=== PATIENT | female | born 1990 | race Caucasian/White ===

== ENCOUNTER → 2020-03-13 07:37 | Outpatient (CLI) | payer OTHER, SELFPAY ==
--- NOTE | ~2020-03-13 | US_ITS ---
EXAMINATION: US breast LT limited HISTORY: Left nipple discharge TECHNIQUE: Limited left breast ultrasound is performed. FINDINGS: There is no evidence of focal abnormal cystic or solid mass in the vicinity of the left nip ple. IMPRESSION: No specific sonographic correlate is identified for the patient's left nipple discharge. Further eval uation at this time should be based on clinical assessment. Continued follow-up physical examination is recommended. BI-RADS Category 1: Negative Reviewed, dictated and finalized at location A. IMPRESSION: No specific sonographic correlate is identified for the patient's left nipple d ischarge. Further evaluation at this time should be based on clinical assessmen t. Continued follow-up physical examination is recommended. BI-RADS Category 1: Negative
== END ==
PROVIDERS: Visit Provider Nurse Practitioner Obstetrics & Gynecology
DX: N64.4 Mastodynia (principal)
CPT/HCPCS: 76642

== ENCOUNTER 2024-03-29 16:05 | Emergency (ER) | payer OTHER, SELFPAY ==
[2024-03-29 16:08] VITALS: BP 137/90; PULSE 98; RESP 18; TEMP 36.9; O2SAT 100
--- NOTE | 2024-03-29 17:07 | ED.HA ---
HPI - Headache General Chief Complaint: Headache Stated Complaint: headache Time Seen by Provider: 03/29/24 16:41 Source: patient Mode of arrival: ambulatory Limitations: no limitations History of Present Illness HPI Narrative: Patient presents with a headache of 14 days duration. Associated with mild photophobia and some phonophobia. Worse with motion. Associated with nausea but no vomiting. She had a fever on day one or 2 of symptoms but not since. Headache is right-sided and associated with facial numbness and feeling like her scalp is on fire. Also paresthesias in her bilateral arms. She states this is normal for her headache semiology (except the scalp on fire sensation is new) but it feels like this headache is lasting longer than normal. Her PCP manages her headaches. Currently on [employer] but not working this time. Has not seen a neurologist but has had an MRI which noted some finding at her mastoid (unknown exactly by patient other than T2... ) but otherwise felt to be benign. No increased lacrimation, not on anticoagulation, no trauma, no sick contacts. Related Data Allergies Allergy/AdvReac Type Severity Reaction Status Date / Time venom-honey bee Allergy Severe Anaphylactic Unverified 03/29/24 16:26 Shock Sulfa (Sulfonamide Allergy Mild RASH Unverified 03/29/24 16:26 Antibiotics) ADHESIVE TAPE Allergy Mild HIVES Uncoded 03/29/24 16:26 PMFSH Past Medical History Medical History Migraine Social History Social History Living arrangements: with family Additional living arrangements comments: and children Exam Narrative: GENERAL: Well-appearing, well-nourished, and in no acute distress. HEAD: Normocephalic, atraumatic. EYES: Non injected, non icteric. PERRL. No APD. Very slight ptosis of right eyelid. EOMI. No palsy. No notable lacrimation of bilateral eyes. ENT: Nares clear, no rhinorrhea or epistaxis. NECK: Supple. CHEST: Speaking in full sentences. No respiratory distress. HEART: Regular rate and rhythm. . ABDOMEN: Soft, nondistended. EXTREMITIES: Normal range of motion. No edema. SKIN: Warm, dry, no rash. Particularly no lesions appreciated along arms or face. No TTP of bilateral temples. NEURO: No focal deficits. Alert and oriented x3. Sensation intact throughout extremities and across distribution of face x3, symmetric. Normal and symmetric facial muscles (smile, closed eyes, furrowed brow). Speaks clearly without aphasia or dysarthria. No abnormal movements appreciated. PSYCH: Normal mood and affect. Course Vital Signs Vital signs: Vital Signs Temperature 98.4 F 03/29/24 16:08 Pulse Rate 98 03/29/24 16:08 Respiratory Rate 18 03/29/24 16:08 Blood Pressure 137/90 03/29/24 16:08 Pulse Oximetry 100 03/29/24 16:08 Oxygen Delivery Room Air 03/29/24 16:08 Temperature 98.4 F 03/29/24 16:08 Pulse Rate 98 03/29/24 16:08 Respiratory Rate 18 03/29/24 16:08 Blood Pressure 137/90 03/29/24 16:08 Pulse Oximetry 100 03/29/24 16:08 Oxygen Delivery Room Air 03/29/24 16:08 MDM - Headache MDM Narrative Medical decision making narrative: After obtaining the patient's history and performing a physical exam, the headache is most likely due to benign etiology. The extensive neurological examination is non-focal, there are no high-risk features on history, vital signs are within normal limits, and the patient is non-toxic appearing. DIFFERENTIAL DIAGNOSIS The Ddx for the patient's headache is tension headache, migraine, or other headache of non-emergent etiology. Unlikely SAH: Headache is similar to headaches in the past. Unlikely subdural/epidural hematoma: no history of trauma, no anticoagulation Unlikely meningitis: afebrile, no meningismus, mild photophobia Unlikely temporal arteritis: pt <60 years old. No tenderness in temporal a
[2024-03-29] MEDS: KETOROLAC 15 MG/ML VIAL (*BKC) IV PUSH (17:29)
[2024-03-29] MEDS: PROCHLORPERAZINE EDISYLATE 10 MG/2 ML VIAL IV PUSH (17:29)
[2024-03-29] MEDS: diphenhydrAMINE HCl INJ 50 MG/ML VIAL 25 MG IV PUSH (17:29)
[2024-03-29] MEDS: SODIUM CHLORIDE 0.9% IV 1,000 ML 999 ML IV CONT (17:29)
[2024-03-29] MEDS: dexAMETHasone SOD PHOS INJ 10 MG/ML 1 ML VIAL IV PUSH (19:01)
== END 2024-03-29 19:05 | disposition home or self-care (01) ==
PROVIDERS: Emergency Provider Student in an Organized Health Care Education/Training Program
DX: G43.909 Migraine, unspecified, not intractable, without status migrainosus (principal)
CPT/HCPCS: 96361; 96374; 96375; 99284; J0780; J1100; J1200; J1885; J7030

== ENCOUNTER 2024-08-29 14:08 | Outpatient (CLI) | payer OTHER, SELFPAY ==
--- NOTE | ~2024-08-29 | XR_ITS ---
XR cervical spine 4-5V Ordering provider: Og Nina MD History: . M54.2 - Cervicalgia, PAIN TO NECK . Comparison: None. FINDINGS: VERTEBRAL BODIES: Normal height and alignment. No visible fracture or subluxation. The dens is intact . DISK SPACES: Well maintained. PARASPINOUS SOFT TISSUES: No prevertebral soft tissue swelling. IMPRESSION: No acute osseous abnormality cervical spine. Reviewed, dictated and finalized at location A. IGERATOR GLAZIER
== END 2024-08-29 14:09 | disposition home or self-care (01) ==
PROVIDERS: PCP Nurse Practitioner Family; Visit Provider Anesthesiology Pain Medicine
DX: M54.2 Cervicalgia (principal); G89.29 Other chronic pain
CPT/HCPCS: 72050